=== PATIENT | male | born 1940 | race Caucasian/White ===

== ENCOUNTER 2020-12-24 15:25 | Emergency (ER) | payer MEDICARE ==
[~2020-12-24] VITALS: Ht 167.6 cm; Wt 63.0 kg
[2020-12-24 15:35] VITALS: BP 130/61
--- NOTE | 2020-12-24 15:35 | NUR ---
BIBA TAKEN TO BED 12
--- NOTE | 2020-12-24 16:00 | NUR ---
80/M BIBA S/P FALL. PER EMS PATIENT WAS WALKING INTO A [employer] STORE AND STATES THE FLOOR IN THE ENTRYWAY WAS SLIPPERY, CAUSING PATIENT TO FALL ON LEFT SIDE. PATIENT DENIES HEAD INJURY OR LOC, C/O 7/10 LEFT SHOULDER AND LEFT HIP PAIN. PATIENT HAS GOOD ROM AND ABLE TO AMBULATE WITHOUT ASSISTANCE. PATIENT DENIES CP, SOB, HEADACHE OR DIZZINESS. ALERT AND ORIENTED X4, ANSWERING QUESTIONS APPROPRIATELY.
--- NOTE | 2020-12-24 18:00 | NUR ---
PATIENT RESTING IN BED WITH EYES CLOSED, AT BEDSIDE. AWAITING RESULTS, ALL NEEDS MET AT THIS TIME.
--- NOTE | 2020-12-24 19:25 | NUR ---
Pt report given to MARISSA HOWARD. Transfer of care at this time.
[2020-12-24] MEDS ORDERED: LID5T TP (19:33)
[2020-12-24 19:40] VITALS: BP 125/59
--- NOTE | 2020-12-24 19:40 | NUR ---
Patient discharged with v/s stable. Written and verbal after care instructions given and explained. Patient alert, oriented and verbalized understanding of instructions. Ambulatory with steady gait. All questions addressed prior to discharge. ID band removed. Patient advised to follow up with PMD. Rx of LIDOCAINE HYD given. Patient educated on indication of medication including possible reaction and side effects. Opportunity to ask questions provided and answered.
== END 2020-12-24 19:40 | disposition home or self-care (01) ==
LOC: MED 15:25
DX: M25.552 Pain in left hip (principal); M25.512 Pain in left shoulder; M53.3 Sacrococcygeal disorders, not elsewhere classified; I10 Essential (primary) hypertension; E78.5 Hyperlipidemia, unspecified; W01.0XXA Fall on same level from slipping, tripping and stumbling without subsequent striking against object, initial encounter; Y93.89 Activity, other specified; Y92.89 Other specified places as the place of occurrence of the external cause; Y99.8 Other external cause status
CPT/HCPCS: 72192; 73030; 99284